=== PATIENT | male | born 1965 | race Caucasian/White ===

== ENCOUNTER → 2017-12-22 | Outpatient (CLI) | payer BC ==
--- NOTE | 2017-12-23 09:56 | MR ---
MR angiogram renal arteries with and without contrast HISTORY: I 10 Multiplanar multisequence and postcontrast images obtained through the abdomen, renal arteries follow ing 10 cc Gadavist IV. No comparisons Three-dimensional reconstructions performed. Abdominal aorta, celiac axis, superior mesenteric artery, proximal common iliac arteries are patent. Phase contrast images of the proximal renal arteries shows no significant signal drop to suggest prox imal stenosis. 2 renal arteries are suspected on the right, although there may be an additional infer ior right renal artery, 3 suspected on the left, phase contrast images not performed through the infe rior most renal arteries on axial images. Kidneys show no evident mass or hydronephrosis. Left kidney measuring approximately 10 to 11 cm right kidney approximately 10 cm. Adrenal glands show no mass. No evident retroperitoneal adenopathy. Aort a shows normal caliber. IMPRESSION: Renal artery stenosis is not evident.
== END | disposition home or self-care (01) ==
LOC: RADMRIMAIN 16:44
PROVIDERS: ATTEND Internal Medicine Nephrology
DX: I10 Essential (primary) hypertension (principal)
CPT/HCPCS: 74185; A9581

== ENCOUNTER 2018-01-05 20:00 | Emergency (ER) | payer BC, OTHER ==
[2018-01-05] MEDS ORDERED: SODIUM CHLORIDE 0.9% 2,000 ML IV ONE (20:02)
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
[2018-01-05 20:22] LABS: Basophils # (A) 0.1 k/uL (0-0.2); Basophils % (A) 1 %; Eosinophils # (A) 0.6 k/uL (0-0.7); Eosinophils % (A) 6 %; HCT 39.2 % (39.0-53.0); Lymphocytes # (A) 1.3 k/uL (1.0-4.8); Lymphocytes % (A) 15 %; MCH 28.7 pg (25.0-35.0); MCHC 35.8 g/dL (31.0-37.0); MCV 80.3 fL (80.0-100.0); Mean Platelet Volume 6.7; Monocytes # (A) 0.7 k/uL (0-1.0); Monocytes % (A) 8 %; Neutrophils # (A) 6.1 k/uL (1.3-7.7); Neutrophils % (A) 69 %; Platelet Count 268 k/uL (150-450); RBC 4.88 m/uL (4.30-5.90); RDW 13.8 % (11.5-15.5); WBC 8.9 k/uL (3.8-10.6)
[2018-01-05 20:36] LABS: Albumin 4.4 g/dL (3.5-5.0); Calcium 9.2 mg/dL (8.4-10.2); Potassium 3.2 mmol/L (3.5-5.1); Total Bilirubin 0.5 mg/dL (0.2-1.3); Total Protein 6.6 g/dL (6.3-8.2)
[2018-01-05 20:49] VITALS: RESP 18
[2018-01-05 21:34] VITALS: BP 143/88; PULSE 79; TEMP 98.3
== END 2018-01-05 21:33 | disposition home or self-care (01) ==
LOC: EC 20:00
DX: T67.5XXA Heat exhaustion, unspecified, initial encounter (principal); Z79.899 Other long term (current) drug therapy; Z88.0 Allergy status to penicillin; Y92.69 Other specified industrial and construction area as the place of occurrence of the external cause; Y99.0 Civilian activity done for income or pay
CPT/HCPCS: 36415; 80053; 85025; 93005; 96360; 99284

== ENCOUNTER → 2018-01-23 | Outpatient (CLI) | payer BC ==
--- NOTE | 2018-01-23 22:05 | CT ---
EXAMINATION TYPE: CT abdomen wo/w con DATE OF EXAM: 01/23/2018 COMPARISON: MRA renal December 22, 2017 HISTORY: Hyperaldosteronism. CT DLP: 1743 mGycm, Automated Exposure Control for Dose Reduction was Utilized. CONTRAST: CT scan of the abdomen is performed with oral and without and with IV Contrast, patient injected with 100ml mL of Isovue M300. Adrenal mass protocol. FINDINGS: LUNG BASES: Dependent atelectasis is present medially in both bases. LIVER/GB: Liver is markedly low dense on noncontrast images consistent with fatty infiltration. PANCREAS: No significant abnormality is seen. SPLEEN: No significant abnormality is seen. ADRENALS: Right adrenal gland is felt within normal limits. Small nodule left adrenal gland central a spect posterior limb measures 1.1 x 0.8 cm axial image 30. Hounsfield units average 18 on noncontrast study with enhancement to 66 and 1 minute postcontrast images and washout to 39 on 15 minute delayed images. In addition there is dropout on in and out of phase recent MRA. KIDNEYS: Accessory renal arteries are redemonstrated. BOWEL: Oral contrast does not reach colonic level. There is no suspicious small or large bowel dilata tion there is mild wall thickening of the left colon presumed product of poor distention, a mild coli tis cannot be entirely excluded. LYMPH NODES: No greater than 1cm abdominal lymph nodes nodes are appreciated. Some scattered subcent imeter lymph nodes throughout the mesentery are seen on coronal images OSSEOUS STRUCTURES: No significant abnormality is seen. OTHER: No significant additional abnormality is seen. IMPRESSION: Small 1.1 cm left adrenal mass has signal dropout on MRI and greater than 50% washout con sistent with benign lipid rich adenoma. No worrisome mass identified to account for patient's symptom s of hyperaldosteronism.
== END ==
LOC: RADCTMAIN 16:31
PROVIDERS: ATTEND Internal Medicine Nephrology
DX: E27.9 Disorder of adrenal gland, unspecified (principal); E26.9 Hyperaldosteronism, unspecified
CPT/HCPCS: 74170; Q9967

== ENCOUNTER → 2018-03-06 | Outpatient (CLI) | payer BC ==
[2018-03-06 15:45] LABS: Basophils # (A) 0.1 k/uL (0-0.2); Basophils % (A) 1 %; Eosinophils # (A) 0.6 k/uL (0-0.7); Eosinophils % (A) 8 %; HCT 39.9 % (39.0-53.0); HGB 13.4 gm/dL (13.0-17.5); Lymphocytes # (A) 1.4 k/uL (1.0-4.8); Lymphocytes % (A) 18 %; MCH 28.2 pg (25.0-35.0); MCHC 33.6 g/dL (31.0-37.0); MCV 83.8 fL (80.0-100.0); Mean Platelet Volume 6.3; Monocytes # (A) 0.7 k/uL (0-1.0); Monocytes % (A) 9 %; Neutrophils # (A) 4.6 k/uL (1.3-7.7); Neutrophils % (A) 62 %; Platelet Count 232 k/uL (150-450); RBC 4.76 m/uL (4.30-5.90); RDW 13.5 % (11.5-15.5); WBC 7.5 k/uL (3.8-10.6)
[2018-03-06 16:09] LABS: Albumin 4.6 g/dL (3.5-5.0); Calcium 9.8 mg/dL (8.4-10.2); Potassium 4.4 mmol/L (3.5-5.1)
== END | disposition home or self-care (01) ==
LOC: LABWHC1 15:08
PROVIDERS: ATTEND Internal Medicine Nephrology
DX: I10 Essential (primary) hypertension (principal)
CPT/HCPCS: 36415; 80048; 82040; 85025

== ENCOUNTER → 2020-10-27 | Outpatient (CLI) | payer BC ==
[2020-10-27 11:21] LABS: Basophils # (A) 0.07 X 10*3/uL (0.00-0.10); Basophils % (A) 0.9 %; Eosinophils # (A) 0.38 X 10*3/uL (0.04-0.35); Eosinophils % (A) 5.1 %; HCT 49.6 % (39.6-50.0); HGB 16.4 g/dL (13.0-17.0); Lymphocytes # (A) 1.88 X 10*3/uL (0.90-5.00); MCHC 33.1 g/dL (32.0-37.0); MCV 84.6 fL (80.0-97.0); Monocytes # (A) 0.88 X 10*3/uL (0.20-1.00); Monocytes % (A) 11.7 %; Neutrophils # (A) 4.29 X 10*3/uL (1.80-7.70); Platelet Count 217 X 10*3/uL (140-440); RBC 5.86 X 10*6/uL (4.40-5.60); RDW 12.5 % (11.5-14.5); WBC 7.52 X 10*3/uL (4.50-10.00)
[2020-10-27 12:41] LABS: Hemoglobin A1C 8.8 % (4.0-6.0)
[2020-10-27 15:25] LABS: African American GFR (CKD) 71.7 (60.0-200.0); Albumin 4.7 g/dL (3.80-4.90); Albumin/Globulin Ratio 2.47 (1.60-3.17); Anion Gap 11.4 mmol/L (4.00-12.00); BUN/Creat Ratio 16.15 Ratio (12.00-20.00); Calcium 9.3 mg/dL (8.7-10.3); Carbon Dioxide 23.6 mmol/L (21.6-31.8); Chol/HDL Ratio 6.47; Globulin 1.9 g/dL (1.6-3.3); Non-African American GFR(CKD) 61.9 (60.0-200.0); PSA Annual Screen 0.6 ng/mL (0.0-4.0); Potassium 4.4 mmol/L (3.5-5.5); Total Bilirubin 0.5 mg/dL (0.2-1.2); Total Protein 6.6 g/dL (6.2-8.2)
== END | disposition home or self-care (01) ==
LOC: LABWHC1 07:27
PROVIDERS: ATTEND Family Medicine
DX: Z12.5 Encounter for screening for malignant neoplasm of prostate (principal); E78.00 Pure hypercholesterolemia, unspecified; I10 Essential (primary) hypertension; E11.9 Type 2 diabetes mellitus without complications
CPT/HCPCS: 80061; 80053; 85025; 83721; 83036; 36415; G0103

== ENCOUNTER → 2021-02-16 | Outpatient (CLI) | payer BC ==
[2021-02-16 14:45] LABS: Hemoglobin A1C 8.5 % (4.0-6.0)
[2021-02-16 15:26] LABS: Chol/HDL Ratio 6.06
[2021-02-16 23:00] LABS: Urine Creatinine 229.9 mg/dL
== END | disposition home or self-care (01) ==
LOC: LABWHC1 07:23
PROVIDERS: ATTEND Family Medicine
DX: E78.00 Pure hypercholesterolemia, unspecified (principal); E11.9 Type 2 diabetes mellitus without complications; I10 Essential (primary) hypertension
CPT/HCPCS: 36415; 80061; 82043; 82570; 82947; 83036; 83721

== ENCOUNTER → 2021-06-01 | Outpatient (CLI) | payer BC ==
[2021-06-01 12:40] LABS: ALT 34 U/L (10-49); AST 20 U/L (14-35); Chol/HDL Ratio 5.26 Ratio; Creatine Kinase 96 U/L (35-257)
== END | disposition home or self-care (01) ==
LOC: LABWHC1 08:03
PROVIDERS: ATTEND Family Medicine
DX: E11.9 Type 2 diabetes mellitus without complications (principal); E78.00 Pure hypercholesterolemia, unspecified
CPT/HCPCS: 36415; 80061; 82550; 83036; 84450; 84460

== ENCOUNTER → 2021-11-04 | Outpatient (CLI) | payer BC ==
[2021-11-04 10:37] LABS: Basophils # (A) 0.05 X 10*3/uL (0.00-0.10); Basophils % (A) 0.6 %; Eosinophils # (A) 0.17 X 10*3/uL (0.04-0.35); HGB 15.4 g/dL (13.0-17.0); Immature Grans, Automated 0.2 %; Lymphocytes # (A) 1.59 X 10*3/uL (0.90-5.00); Lymphocytes % (A) 18.6 %; MCHC 32.8 g/dL (32.0-37.0); MCV 85.5 fL (80.0-97.0); Mean Platelet Volume 9.7 fL (9.5-12.2); Monocytes # (A) 0.93 X 10*3/uL (0.20-1.00); Monocytes % (A) 10.9 %; NRBC Per 100 WBC 0 /100 WBCS (0.0-0.0); Neutrophils # (A) 5.81 X 10*3/uL (1.80-7.70); Neutrophils % (A) 67.7 %; Platelet Count 225 X 10*3/uL (140-440); RDW 12.6 % (11.5-14.5); WBC 8.57 X 10*3/uL (4.50-10.00)
[2021-11-04 10:52] LABS: ALT 33 U/L (10-49); AST 18 U/L (14-35); African American GFR (CKD) 65.1 (60.0-200.0); Albumin 4.9 g/dL (3.8-4.9); Albumin/Globulin Ratio 2.72 (1.60-3.17); Alkaline Phosphatase 92 U/L (41-126); Blood Urea Nitrogen 17.5 mg/dL (9.0-27.0); Calcium 9.9 mg/dL (8.7-10.3); Carbon Dioxide 26.6 mmol/L (20.0-27.5); Chloride 104 mmol/L (96-109); Chol/HDL Ratio 4.54 Ratio; Globulin 1.8 g/dL (1.6-3.3); Glucose 140 mg/dL (70-110); LDL Cholesterol,Calculated 88.9 mg/dL (0.0-131.0); Non-African American GFR(CKD) 56.2 (60.0-200.0); Potassium 4.4 mmol/L (3.5-5.5); Sodium 141 mmol/L (135-145); Total Protein 6.7 g/dL (6.2-8.2)
== END | disposition home or self-care (01) ==
LOC: LABWHC1 07:32
PROVIDERS: ATTEND Family Medicine
DX: Z12.5 Encounter for screening for malignant neoplasm of prostate (principal); I10 Essential (primary) hypertension; E78.00 Pure hypercholesterolemia, unspecified; E11.9 Type 2 diabetes mellitus without complications
CPT/HCPCS: 80061; 80053; 84443; 85025; 83036; 36415; G0103

== ENCOUNTER → 2022-03-25 | Outpatient (CLI) | payer BC | END | disposition home or self-care (01) | LOC: LABWHC1 07:05 | PROVIDERS: ATTEND Family Medicine | DX: E11.9 Type 2 diabetes mellitus without complications (principal) | CPT/HCPCS: 36415; 83036 ==

== ENCOUNTER → 2022-06-28 | Outpatient (CLI) | payer BC | END | disposition home or self-care (01) | LOC: LABWHC1 07:20 | PROVIDERS: ATTEND Family Medicine | DX: E11.9 Type 2 diabetes mellitus without complications (principal) | CPT/HCPCS: 36415; 83036 ==

== ENCOUNTER → 2022-11-07 | Outpatient (CLI) | payer BC ==
[2022-11-07 11:08] LABS: Basophils # (A) 0.06 X 10*3/uL (0.00-0.10); Basophils % (A) 0.9 %; Eosinophils # (A) 0.28 X 10*3/uL (0.04-0.35); Eosinophils % (A) 4.1 %; HCT 47.3 % (39.6-50.0); HGB 15.3 g/dL (13.0-17.0); Immature Grans, Automated 0.3 %; Lymphocytes # (A) 1.37 X 10*3/uL (0.90-5.00); Lymphocytes % (A) 20.1 %; MCH 27.8 pg (27.0-32.0); MCHC 32.3 g/dL (32.0-37.0); MCV 85.8 fL (80.0-97.0); Mean Platelet Volume 9.6 fL (9.5-12.2); Monocytes # (A) 0.75 X 10*3/uL (0.20-1.00); NRBC Per 100 WBC 0 /100 WBCS (0.0-0.0); Neutrophils # (A) 4.32 X 10*3/uL (1.80-7.70); Neutrophils % (A) 63.6 %; Platelet Count 209 X 10*3/uL (140-440); RBC 5.51 X 10*6/uL (4.40-5.60); RDW 12.7 % (11.5-14.5)
[2022-11-07 11:19] LABS: ALT 35 U/L (10-49); AST 19 U/L (14-35); African American GFR (CKD) 64.6 (60.0-200.0); Albumin 4.8 g/dL (3.8-4.9); Albumin/Globulin Ratio 2.82 (1.60-3.17); Alkaline Phosphatase 94 U/L (41-126); BUN/Creat Ratio 12.21 Ratio (12.00-20.00); Blood Urea Nitrogen 17.1 mg/dL (9.0-27.0); Calcium 9.7 mg/dL (8.7-10.3); Carbon Dioxide 27.9 mmol/L (20.0-27.5); Chloride 102 mmol/L (96-109); Chol/HDL Ratio 4.44 Ratio; Globulin 1.7 g/dL (1.6-3.3); Glucose 139 mg/dL (70-110); LDL Cholesterol,Calculated 79.4 mg/dL (0.0-131.0); Non-African American GFR(CKD) 55.8 (60.0-200.0); Potassium 4.6 mmol/L (3.5-5.5); Sodium 140 mmol/L (135-145); Total Protein 6.5 g/dL (6.2-8.2)
== END | disposition home or self-care (01) ==
LOC: LABWHC1 07:01
PROVIDERS: ATTEND Family Medicine
DX: Z12.5 Encounter for screening for malignant neoplasm of prostate (principal); I10 Essential (primary) hypertension; E11.9 Type 2 diabetes mellitus without complications; E78.00 Pure hypercholesterolemia, unspecified
CPT/HCPCS: 80061; 80053; 84443; 85025; 83036; 36415; G0103

== ENCOUNTER 2024-02-26 09:59 | Observation (INO) | payer BC ==
--- NOTE | 2024-02-26 10:43 | ED ---
General Adult HPI - General Chief complaint: Neck Pain/Injury Stated complaint: Neck Pain Time Seen by Provider: 02/26/24 10:20 Source: patient, RN notes reviewed, old records reviewed Mode of arrival: EMS Limitations: no limitations - History of Present Illness Initial comments: This is a 58-year-old male who presents to the emergency department complaining of left-sided neck pain and upper back pain on the left he states he also has tingling in his fingers and having some pain in his left elbow. Patient states movement makes it significantly worse. Patient states after he worked in the garage lifting things above his head he started having some pain on Monday he went to the urgent care they gave him steroids. Patient then went and saw chiro practor on Monday and he was feeling a little better but after that his pain came back he had a knot in his shoulder that his had to rub out and he has been unable to sleep secondary to the pain and last night he states he did not sleep at all. Patient also did go to [facility] yesterday and they gave him a shot of Toradol and Norflex but patient states that did not help at all. Patient does feel he tingling in his fingers on his left hand but he has not lost strength or broke handler but movement of the neck either laterally or extension causes him increased pain. Patient denies any known trauma however he does state that a month ago he fell and hit his lower back but he did not at that time had any neck pain or did not hit his head. - Related Data Home Medications Medication Instructions Recorded Confirmed Metoprolol Succinate (ER) [Toprol 100 mg PO HS 01/05/18 02/28/18 Xl] Potassium Chloride [K-Tab ER] 10 meq PO HS 01/05/18 03/02/18 Pravastatin Sodium [Pravachol] 20 mg PO HS 01/05/18 03/02/18 amLODIPine BES/OLMESARTAN MED 1 tab PO HS 01/05/18 03/02/18 [Gloria 10-40 mg Tablet] Aldactone(Dose Unknown) 1 tab PO HS 02/28/18 02/28/18 Allergies Allergy/AdvReac Type Severity Reaction Status Date / Time Penicillins Allergy Rash/Hives Verified 02/26/24 10:12 Review of Systems ROS Statement: Those systems with pertinent positive or pertinent negative responses have been documented in the HPI. ROS Other: All systems not noted in ROS Statement are negative. Past Medical History Past Medical History: Hypertension Additional Past Medical History / Comment(s): CONNs disease History of Any Multi-Drug Resistant Organisms: None Reported Additional Past Surgical History / Comment(s): gum implants Past Psychological History: No Psychological Hx Reported Past Alcohol Use History: None Reported Past Drug Use History: None Reported General Exam - General Exam Comments Initial Comments: GENERAL: Patient is well-developed and well-nourished. Patient is nontoxic and well-hy drated and is in moderate distress. ENT: Neck is soft and supple. No significant lymphadenopathy is noted. Oropharynx is clear. Moist mucous membranes. Patient has pain with extension and lateral flexion to the left. EYES: The sclera were anicteric and conjunctiva were pink and moist. Extraocular movements were intact and pupils were equal round and reactive to light. Eyelids were unremarkable. SKIN: Skin is clear with no lesions or rashes and otherwise unremarkable. NEUROLOGIC: Patient is alert and oriented x3. Cranial nerves II through XII are grossly intact. Motor and sensory are also intact. Normal speech, volume and content. Symmetrical smile. MUSCULOSKELETAL: Normal extremities with adequate strength and full range of motion. No lower extremity swelling or edema. No calf tenderness. Patient also has tenderness on the trapezius muscle at the distal aspect LYMPHATICS: No significant lymphadenopathy is noted PSYCHIATRIC: Normal psychiatric evaluation. Limitations: no limitations Course Vital Signs 02/26/24 10:08 Temperature 97.6 F Pulse Rate 70 Respiratory 20 Rate Blood Pressure 165/94 O2 Sat by Pulse 100 Oximetry Medical Decision Making - Medical Decision Making Was pt. sent in by a medical professional or institution (, PA, MUSICAL INSTRUMENTS ASSEMBLER, urgent care, hospital, or longterm...) When possible be specific @ -No Did you speak to anyone other than the patient for history (EMS, parent, family, police, friend...)? What history was obtained from this source @ -No Did you review nursing and triage notes (agree or disagree)? Why? @ -I reviewed and agree with nursing and triage notes Were old charts reviewed (outside hosp., previous admission, EMS record, old EKG, old radiological studies, urgent care reports/EKG's, longterm records)? Report findings @ -No old charts were reviewed Differential Diagnosis? @ -Differential Musculoskeletal Muscular strain, contusion, ligament sprain, fracture, arthritis, septic arthritis, bursitis, cellulitis, muscle spasm, nerve compression, DVT, arterial occlusion, herpes zoster, electrolyte abnormality, tumor.... This is not meant to be in all inclusive list EKG interpreted by me (3pts min.). @ -As above X-rays interpreted by me (1pt min.). @ -None done CT interpreted by me (1pt min.). @ -CT of the cervical spine showed disc disease between C5 and C6 with some foraminal narrowing bilaterally worse on the right. U/S interpreted by me (1pt. min.). @ -None done What testing was considered but not performed or refused? (CT, X-rays, U/S, labs)? Why? @ -None What meds were considered but not given or refused? Why? @ -None Did you discuss the management of the patient with other professionals (professionals i.e. , PA, MUSICAL INSTRUMENTS ASSEMBLER, lab, RT, psych nurse, social work faculty member, electronic plotting system operator, teacher, prison officer, rifle case repairer)? Give summary @ -I spoke with Dr. Sandhu he agreed to admit the patient I admitted the patient wrote admitting orders Was smoking cessation discussed for >3mins.? @ -No Was critical care preformed (if so, how long)? @ -No Were there social determinants of health that impacted care today? How? (Homelessness, low income, unemployed, alcoholism, drug addiction, transportation, low edu. Level, literacy, decrease access to med. care, assisted, rehab)? @ -No Was there de-escalation of care discussed even if they declined (Discuss DNR or withdrawal of care, Hospice)? DNR status @ -No What co-morbidities impacted this encounter? (DM, HTN, Smoking, COPD, CAD, Cancer, CVA, ARF, Chemo, Hep., AIDS, mental health diagnosis, sleep apnea, morbid obesity)? @ -None Was patient admitted / discharged? Hospital course, mention meds given and route, prescriptions, significant lab abnormalities, going to OR and other pertinent info. @ -Patient was given Valium Solu-Medrol and Toradol initially it did seem to help his pain however when the patient got up to move around and he was in severe pain again. Patient was given Dilaudid and again it helped his pain but he was unable to get up and move around. I spoke with Dr. Sandhu he agreed to admit the patient admit the patient and I consulted Dr. Bell per patient request Undiagnosed new problem with uncertain prognosis? @ -No Drug Therapy requiring intensive monitoring for toxicity (Heparin, Nitro, Insulin, Cardizem)? @ -No Were any procedures done? @ -No Diagnosis/symptom? @ -Cervical radiculopathy Acute, or Chronic, or Acute on Chronic? @ -Default Uncomplicated (without systemic symptoms) or Complicated (systemic symptoms)? @ -Acute Side effects of treatment? @ -No Exacerbation, Progression, or Severe Exacerbation? @ -No Poses a threat to life or bodily function? How? (Chest pain, [place], [place], pneumonia, PE, COPD, DKA, ARF, appy, cholecystitis, CVA, Diverticulitis, Homicidal, Suicidal, threat to staff... and all critical care pts) @ -No Disposition Clinical Impression: Cervical radiculopathy Disposition: ADMITTED IP TO THIS HOSP Referrals: Gee Payne [Primary Care Provider] - 1-2 days Time of Disposition: 14:41
[2024-02-26] MEDS: KETOROLAC 15 MG/ML 1 ML VIAL IVP STA (11:15)
[2024-02-26] MEDS: methylPREDNISolone SOD SUCCI 125 MG/2 ML VIAL IV STA (11:16)
--- NOTE | 2024-02-26 11:21 | CT ---
EXAMINATION TYPE: CT cervical spine wo con DATE OF EXAM: 02/26/2024 COMPARISON: None HISTORY: Neck pain with radiculopathy CT DLP: 524.9 mGycm Automated exposure control for dose reduction was used. TECHNIQUE: CT scan of the cervical spine is obtained without contrast, axial images are obtained, sa gittal and coronal reformatted images are also reviewed. FINDINGS: The craniovertebral junction relationship to prevertebral soft tissues are normal. Cervical vertebral segments are normal in height and alignment and there is no fracture or subluxatio n. There is loss of normal cervical lordosis. There is mild degenerative disease at the C5-6 level where there is mild disc space narrowing and spo ndylosis. The remaining cervical disc spaces are well preserved. Secondary to mild facet arthropathy at the C5-6 level there is mild bony neural foraminal stenosis right greater than left. IMPRESSION: 1. No acute trauma. 2. Mild degenerative disease at C5-6 level. 3 moderate degeneration the uncovertebral joints at C5-C6 resulting in mild bony neural foraminal encroachment, right greater than left.
[2024-02-26] MEDS: HYDROmorphone 0.5 MG/0.5 ML SYRINGE IVP STA (14:05)
[2024-02-26] MEDS: HYDROmorphone 0.5 MG/0.5 ML SYRINGE IVP PRN (20:05)
[2024-02-26] MEDS ORDERED: ACETAMINOPHEN TAB 500 MG TAB PO PRN (21:07)
--- NOTE | 2024-02-26 21:07 | P.HPIM ---
History of Present Illness H&P Date: 02/26/24 Chief Complaint: Neck pain Patient is a 58-year-old male with a past medical history of hypertension, diabetes type 2 currently on Mounjaro presents to ER with complaints of neck pain and upper back pain mainly on the left side. Patient states that she woke up on Monday morning with pain at the back of the neck and radiating to the left shoulder elbow and tingling sensation to the left fingers. Patient states that he worked in the garage lifting things above his head a day prior. Patient went to urgent care facility where he was given steroid shot and had an x-ray. Patient was given prednisone course. Patient was told he was having C6 C5 disc bulge and referred to chiropractor. Patient went to [facility] the following day since the pain is not getting better. He went to [facility] yesterday. Patient was given Toradol IV and Flexeril which seemed to improve his pain. Again this morning he was having worsening pain mainly below the left shoulder blade and also felt like a knot in his shoulder. Patient was unable to sleep last night due to pain. Patient is also feeling tingling sensation in his fingers on the left hand. Denied any weakness. Denied any tingling exertion in the legs. No bowel or bladder incontinence. No complaints of chest pain or shortness of breath. CT cervical spine done in the ER showed no acute trauma. Mild degenerative disc disease at the C5-C6 level. 3 moderate degeneration the uncovertebral joints of the C5-C6 resulting in mild bony neural foraminal encroachment. Right greater than left. Laboratory data is not available at this time. Patient was given Valium, Solu-Medrol, Dilaudid and Toradol IV in the ER. Review of Systems Constitutional: Patient denies any fever or chills . No generalized weakness or weight loss. Abdomen: Patient denied nausea vomiting and diarrhea and abdominal pain. Cardiovascular: Patient denies any chest pain or short of breath no palpitations. Respiratory: patient denied any cough or sputum production. No shortness of breath Neurologic: Patient denied any numbness or tingling. no headache. Musculoskeletal: Patient denies any complaints of joint swelling or deformity. Neck pain and left shoulder pain and intrascapular pain. Skin: Negative Psychiatric: Negative Endocrine: No heat or cold intolerance. No recent weight gain. Genitourinary: No dysuria or hematuria. All other 14 point ROS negative except the above Past Medical History Past Medical History: Hypertension Additional Past Medical History / Comment(s): CONNs disease History of Any Multi-Drug Resistant Organisms: None Reported Additional Past Surgical History / Comment(s): gum implants Past Anesthesia/Blood Transfusion Reactions: No Reported Reaction Past Psychological History: No Psychological Hx Reported Smoking Status: Never smoker Past Alcohol Use History: None Reported Past Drug Use History: None Reported Medications and Allergies Home Medications Medication Instructions Recorded Confirmed Type Pravastatin Sodium [Pravachol] 20 mg PO DAILY 01/05/18 02/26/24 History Acetaminophen Tab [Tylenol Tab] 1,000 mg PO Q6HR PRN 02/26/24 02/26/24 History Cholecalciferol (Vitamin D3) 50 mcg PO DAILY 02/26/24 02/26/24 History [Vitamin D3 (50 Mcg = 2000 Iu)] Cyclobenzaprine [Flexeril] 10 mg PO HS 02/26/24 02/26/24 History Olmesartan [Benicar] 5 mg PO DAILY 02/26/24 02/26/24 History Tirzepatide [Mounjaro] 2.5 mg SQ FR 02/26/24 02/26/24 History Vitamin B Complex 1 cap PO DAILY 02/26/24 02/26/24 History predniSONE [Deltasone] 40 mg PO DAILY 02/26/24 02/26/24 History Allergies Allergy/AdvReac Type Severity Reaction Status Date / Time Penicillins Allergy Rash/Hives Verified 02/26/24 15:33 Physical Exam Vitals: Vital Signs Temp Pulse Pulse Resp BP BP Pulse Ox 02/26/24 17:25 97.6 F 98 16 125/85 97 02/26/24 15:01 98.1 F 97 16 117/78 95 02/26/24 14:00 73 16 143/89 95 02/26/24 13:00 82 16 137/86 98 02/26/24 12:00 85 16 123/80 98 02/26/24 11:00 63 16 149/98 96 02/26/24 10:08 97.6 F 70 20 165/94 100 Intake and Output 02/26/24 02/26/24 02/26/24 06:59 14:59 22:59 Other: # Voids 1 Weight 85.275 kg 85.275 kg PHYSICAL EXAMINATION: Patient is lying in the bed comfortably, no acute distress, awake alert and oriented.. HEENT: Normocephalic. Neck is supple. Pupils reactive. Nostrils clear. Oral cavity is moist. Neck reveals no JVD, carotid bruits, or thyromegaly. CHEST EXAMINATION: Trachea is central. Symmetrical expansion. Lung nieto clear to auscultation and percussion. CARDIAC: Normal S1, S2 with no gallops. No murmurs ABDOMEN: Soft. Bowel sounds normal. No organomegaly. No abdominal bruits. Extremities: reveal no edema. No clubbing or cyanosis Neurologically awake, alert, oriented x3 with well-coordinated movements. No focal deficits noted Skin: No rash or skin lesions. Psychiatric: Coperative. Nonsuicidal Musculoskeletal: No joint swelling or deformity. Normal range of motion. Thrombosis Risk Factor Assmnt - DVT/VTE Prophylaxis DVT/VTE Prophylaxis: Pharmacologic Prophylaxis ordered - Choose All That Apply Any of the Below Risk Factors Present?: No Other Risk Factors: No Other congenital or acquired thrombophilia - If yes, enter type in comment: No Thrombosis Risk Factor Assessment Level: Very Low Risk Assessment and Plan Assessment: Cervical radiculopathy with neck pain and tingling sensation in the left fingers and also infrascapular pain. Hypertension Diabetes type 2 on Mounjaro DVT prophylaxis with heparin subcu. Plan: Patient will be continued on pain management with Dilaudid and Flexeril. Continue with prednisone 40 mg daily. Was given a dose of IV Toradol in the ER. Current with home medications and insulin sliding scale. Follow-up closely. Orthopedic surgery is on board. Time with Patient: Greater than 30
[2024-02-26] MEDS ORDERED: DEXTROSE 50% SYRINGE 50 ML IVP PRN ×2 (21:08)
[2024-02-26] MEDS: CYCLOBENZAPRINE 10 MG TAB PO SCH (21:54)
[2024-02-26] MEDS: diazePAM 5 MG TAB PO SCH (21:54)
[2024-02-26] MEDS: HEPARIN SODIUM,PORCINE 5,000 UNIT/ML 1 ML VIAL SQ SCH (23:49)
[2024-02-27 05:43] LABS: Glucose,Whole Blood 209 mg/dL (70-110)
[2024-02-27] MEDS: INSULIN ASPART (NovoLOG) 100 UNIT/ML VIAL SQ SCH (05:54)
[2024-02-27] MEDS: CHOLECALCIFEROL 25 MCG (1000 IU) TABLET PO SCH (08:23)
[2024-02-27] MEDS: LOSARTAN 25 MG TAB PO SCH (08:23)
[2024-02-27] MEDS: FAMOTIDINE 20 MG TAB PO SCH (08:23)
[2024-02-27] MEDS: PRAVASTATIN SODIUM 20 MG TAB PO SCH (08:23)
--- NOTE | 2024-02-27 08:46 | P.CNOR ---
History of Present Illness - [facility] Consult date: 02/27/24 Requesting physician: Trace Beasley Consult reason: neck pain (Cervical pain and left upper extremity radiculopathy) History of present illness: Patient is a very pleasant 58-year-old male who is seen and examined at bedside for further evaluation of his cervical spine. He states he had been doing some increased activities with moving some boxes evening and Monday and began to experience some pain at the left side of his posterior cervical spine near the medial scapular border. His pain progressed and began to radiate down his left upper extremity. He states he had pain into his left elbow with numbness and tingling into his left index finger, middle finger, and ring finger. He had presented to an urgent care for further evaluation. He states he was given oral steroids. His symptoms did not improve. He followed with child care provider on Monday but feels his symptoms were not improving. He has significant difficulty with sleeping. He presented to [facility] and he was given a shot of Toradol and Norflex but still did not have any benefit. He presented to [facility] for further evaluation. CT imaging was performed of his cervical spine. He was admitted for treatment and evaluation. He was started on Solu-Medrol. Patient states since his admittance his symptoms have significantly improved. He states his scapular pain is significantly better. He no longer has any elbow pain on the left. The numbness and tingling in his left upper extremity has significantly improved. He does have some numbness and tingling in his left index finger, middle finger, ring finger but to a much lesser degree than during his admittance. He denies any right upper extremity radiculopathy. He states he was able to ambulate to the restroom without any pain for the first time. He is very happy with his progress since his admittance. He would like to be discharged home today. He is admitted to medicine. His other medical diagnoses include hypertension and Type 2 diabetes. Past Medical History Past Medical History: Hypertension Additional Past Medical History / Comment(s): CONNs disease History of Any Multi-Drug Resistant Organisms: None Reported Additional Past Surgical History / Comment(s): gum implants Past Anesthesia/Blood Transfusion Reactions: No Reported Reaction Past Psychological History: No Psychological Hx Reported Smoking Status: Never smoker Past Alcohol Use History: None Reported Past Drug Use History: None Reported Medications and Allergies Home Medications Medication Instructions Recorded Confirmed Type Pravastatin Sodium [Pravachol] 20 mg PO DAILY 01/05/18 02/26/24 History Acetaminophen Tab [Tylenol Tab] 1,000 mg PO Q6HR PRN 02/26/24 02/26/24 History Cholecalciferol (Vitamin D3) 50 mcg PO DAILY 02/26/24 02/26/24 History [Vitamin D3 (50 Mcg = 2000 Iu)] Cyclobenzaprine [Flexeril] 10 mg PO HS 02/26/24 02/26/24 History Olmesartan [Benicar] 5 mg PO DAILY 02/26/24 02/26/24 History Tirzepatide [Mounjaro] 2.5 mg SQ FR 02/26/24 02/26/24 History Vitamin B Complex 1 cap PO DAILY 02/26/24 02/26/24 History predniSONE [Deltasone] 40 mg PO DAILY 02/26/24 02/26/24 History predniSONE See Taper PO DIRECTED #24 tab 02/27/24 Rx Allergies Allergy/AdvReac Type Severity Reaction Status Date / Time Penicillins Allergy Rash/Hives Verified 02/26/24 15:33 Physical Examination Physical exam: Patient is awake, alert, and oriented 3 Vital signs stable Good chest excursion with deep inspiration and expiration Examination of the cervical spine reveals skin is intact with no abrasions, lacerations, or bruises; no erythema, purulence or signs of infection Full range of motion of the cervical spine with adequate flexion, extension, and bilateral rotation Engagement Director strength, thumb strength, interosseous strength, biceps strength, triceps strength, and shoulder strength positive sustained bilaterally Motor strength upper extremities 4/5 on the left including the triceps Upper extremity strength 5/5 bilaterally except for triceps strength on the left No upper extremity hyperreflexia bilaterally Hoffmans sign negative upper extremity bilaterally No signs or symptoms of DVT; no calf pain Results Pertinent studies: CT of the cervical spine taken on 02/26/2024: Loss of normal cervical lordosis; C5-6 significant degenerative disc disease with anterior osteophytic spurring and spondylosis with foraminal stenosis; C6-7 mild degenerative disc disease - Labs Labs: Abnormal Lab Results - Last 24 Hours (Table) 02/27/24 Range/Units 05:42 POC Glucose (mg/dL) 209 H (70-110) mg/dL Assessment and Plan Assessment: Assessment: Left upper extremity radiculopathy C5-6 significant degenerative disc disease C6-7 mild degenerative disc disease Cervical osteophytic spurring Cervical spondylosis Left medial scapular border pain Left tricep weakness Hypertension Type 2 diabetes (1) Left arm weakness Current Visit: Yes Status: Acute Code(s): R29.898 - OTH SYMPTOMS AND SIGNS INVOLVING THE MUSCULOSKELETAL SYSTEM SNOMED Code(s): 032004681 (2) Pain of left scapula Current Visit: Yes Status: Acute Code(s): M89.8X1 - OTHER SPECIFIED DISORDERS OF BONE, SHOULDER SNOMED Code(s): 362746049 (3) Degeneration of C5-C6 intervertebral disc Current Visit: Yes Status: Acute Code(s): M50.322 - OTHER CERVICAL DISC DEGENERATION AT C5-C6 LEVEL SNOMED Code(s): 85485168 (4) Degeneration of intervertebral disc at C6-C7 level Current Visit: Yes Status: Acute Code(s): M50.323 - OTHER CERVICAL DISC DEGENERATION AT C6-C7 LEVEL SNOMED Code(s): 64674483 (5) Cervical spondylosis Current Visit: Yes Status: Acute Code(s): M47.812 - SPONDYLOSIS W/O MYELOPATHY OR RADICULOPATHY, CERVICAL REGION SNOMED Code(s): 419726777 (6) Hypertension Current Visit: Yes Status: Acute Code(s): I10 - ESSENTIAL (PRIMARY) HYPERTENSION SNOMED Code(s): 85615023 (7) Type 2 diabetes mellitus Current Visit: Yes Status: Acute Code(s): E11.9 - TYPE 2 DIABETES MELLITUS WITHOUT COMPLICATIONS SNOMED Code(s): 07375306 (8) Cervical radiculopathy Current Visit: Yes Status: Acute Code(s): M54.12 - RADICULOPATHY, CERVICAL REGION SNOMED Code(s): 28668865 Plan: Plan: 1. Patient was having significant difficulty with left medial scapular border pain with left upper extremity radiculopathy which started night and worsened into Monday. He had presented to an urgent care as well as [facility] for treatment and evaluation. He did not have any benefit with medications through these facilities. He also worked through child care provider without benefit. He was admitted to [facility] for further treatment evaluation. He has had significant movement of his pain after being started on Solu-Medrol. Currently, his pain is well-controlled. He is able to ambulate to the restroom without any significant difficulty. He was having significant difficulty with any mobilization yesterday. He feels his left arm pain is much better controlled. He is not currently complaining of significant left medial scapular border pain. Does have some weakness with his left tricep, which the patient did not realize he had until physical examination. We will continue to monitor this in the outpatient setting. We did discuss he does have some degenerative changes at his cervical spine most significant at C5-6. Currently, we will plan to prescribe a 12-day prednisone taper. This will be sent to his regular pharmacy per request of the patient. Given his significant improvement, he is cleared for discharge from orthopedic spine standpoint. We will plan to have him follow-up in the outpatient setting for further evaluation. Patient may follow-up with Roc Lipscomb PA-C or Dr. Se Bell at [facility] in 2-3 weeks following discharge. Depending on his progress, we may plan to have him work through formal physical therapy and/or order cervical MRI imaging if his symptoms do not continue to improve or not well-controlled. Will discuss further treatment options depending on his progress. 2. Patient is admitted to medicine who will continue to follow the patient. Time with Patient: Greater than 30 (Including obtaining history, physical examination, reviewing of imaging, and dictation.)
[2024-02-27] MEDS ORDERED: NON FORMULARY DRUG (Vitamin B Complex [Vitamin B Complex] 1 EACH Capsule) PO SCH (09:00)
[2024-02-27 09:04] LABS: HCT 44.3 % (39.6-50.0); HGB 15.2 g/dL (13.0-17.0); MCH 29.2 pg (27.0-32.0); MCHC 34.3 g/dL (32.0-37.0); MCV 85.2 FL (80.0-97.0); Mean Platelet Volume 9.9 FL (9.5-12.2); NRBC Per 100 WBC 0 X 10*3/uL (0.00-0.01); Platelet Count 232 X 10*3/uL (140-440); RDW 13.1 % (11.5-14.5); WBC 15.22 X 10*3/uL (4.50-10.00)
[2024-02-27 09:44] LABS: Basophils # (A) 0.02 X 10*3/uL (0.00-0.10); Basophils % (A) 0.1 %; Eosinophils # (A) 0.01 X 10*3/uL (0.04-0.35); Eosinophils % (A) 0.1 %; Lymphocytes # (A) 1.22 X 10*3/uL (0.90-5.00); Monocytes # (A) 1.52 X 10*3/uL (0.20-1.00); Neutrophils # (A) 12.38 X 10*3/uL (1.80-7.70); Neutrophils % (A) 81.3 %; RBC Morphology Normal (Normal)
[2024-02-27 10:03] VITALS: RESP 17
[2024-02-27] MEDS: predniSONE 20 MG TAB PO SCH (10:04)
[2024-02-27 10:25] LABS: BUN/Creat Ratio 21.93 Ratio (12.00-20.00); Blood Urea Nitrogen 30.7 mg/dL (9.0-27.0); Carbon Dioxide 25.6 mmol/L (21.6-31.8); Chloride 103 mmol/L (96-109); Glucose 214 mg/dL (70-110); Potassium 3.9 mmol/L (3.5-5.5); Sodium 140 mmol/L (135-145)
[2024-02-27 10:26] LABS: Calcium 8.9 mg/dL (8.7-10.3)
[2024-02-27 12:39] LABS: Glucose,Whole Blood 134 mg/dL (70-110)
[2024-02-27 17:33] VITALS: BP 115/74; PULSE 77; TEMP 98.7
== END 2024-02-27 16:07 | disposition home or self-care (01) ==
LOC: EC 09:59 → 4SSUR 14:42 → 5NMEDONC 15:27 → 4SSUR 15:29 → 6NMEDSUR 15:43
PROVIDERS: ADMIT Internal Medicine; ATTEND Internal Medicine
DX: M50.122 Cervical disc disorder at C5-C6 level with radiculopathy (principal); M47.22 Other spondylosis with radiculopathy, cervical region; M48.02 Spinal stenosis, cervical region; M62.81 Muscle weakness (generalized); I10 Essential (primary) hypertension; E11.9 Type 2 diabetes mellitus without complications; Z79.52 Long term (current) use of systemic steroids; Z79.85 Long-term (current) use of injectable non-insulin antidiabetic drugs; Z79.899 Other long term (current) drug therapy; Z88.0 Allergy status to penicillin
CPT/HCPCS: 72125; 80048; 83036; 85025; 96374; 96375; 96376; 99285